=== PATIENT | male | born 1965 | race Caucasian/White ===

== ENCOUNTER 2020-10-21 21:47 | Emergency (ER) | payer OTHER ==
[~2020-10-21 21:47] MED LIST: FLOMAX0.4 MG PO; PERCOCET 5/325 T1 EA PO; ZOFRAN4 MG PO
== END 2020-10-21 22:04 | disposition left against medical advice (07) ==
LOC: ER1 21:47
DX: Z53.21 Procedure and treatment not carried out due to patient leaving prior to being seen by health care provider (principal)